=== PATIENT | female | born 1985 ===

== ENCOUNTER 2016-05-15 23:09 | Observation (INO) | payer MEDICAID ==
[2016-05-16] MEDS ORDERED: DiphenhydrAMINE 50 mg/ml Inj IV STA (00:53)
[2016-05-16] MEDS ORDERED: Sodium Chloride 0.9% 1,000 ML IV STA ×3 (00:53→09:23)
[2016-05-16] MEDS ORDERED: DiphenhydrAMINE 50 mg/ml Inj ONE (01:03)
--- NOTE | 2016-05-16 01:21 | CT ---
EXAM: CT Head Without Intravenous Contrast CLINICAL HISTORY: 30 years old, female; Pain; Headache TECHNIQUE: Axial computed tomography images of the head/brain without intravenous contrast. This CT exam was performed using one or more of the following dose reduction techniques: automated exposure control, adjustment of the mA and/or kV according to patient size, and/or use of iterative reconstruction technique. Coronal and sagittal reformatted images were created and reviewed. COMPARISON: No relevant prior studies available. FINDINGS: Brain: No intracranial hemorrhage. No mass. No definite edema. Ventricles: No hydrocephalus. Bones/joints: No acute fracture. Groundglass lesion within LEFT sphenoid bone, likely fibrous dysplasia. Soft tissues: Unremarkable. Sinuses: No acute sinusitis. Mastoid air cells: No mastoid effusion. Orbits: Unremarkable as visualized. IMPRESSION: 1.No acute intracranial abnormality. 2.Non-acute findings are described above.
--- NOTE | 2016-05-16 01:22 | ED PDOC ---
HPI: Headache Time Seen by Provider: 05/16/16 00:30 Chief Complaint (Nursing): Headache Chief Complaint (Provider): headache, left sided body aches History Per: Patient History/Exam Limitations: no limitations Onset/Duration Of Symptoms: Days Current Symptoms Are (Timing): Still Present Additional Complaint(s): 30yo female with no PMHx presents to the ED with c/o headache x 3 weeks with associate left sided body aches x 2 weeks. Patient reports intermittent left sided headache and left sided arm pain described as numbness and tingling that radiates to her left fingers with same sensation to left leg. Saw PCP who diagnosed with patient with a migraine headache and is taking a "small blue pill " with no relief. For the last 3 days notes severe nausea with PO intolerance including of medication. No fever, cough, SOB, chest pain, flu-like symptoms, diarrhea. Past Medical History Reviewed: Historical Data, Nursing Documentation, Vital Signs Vital Signs: Last Vital Signs Temp 98 F 05/15/16 23:25 Pulse 62 05/15/16 23:25 Resp 18 05/15/16 23:25 BP 160/87 H 05/15/16 23:25 Pulse Ox 100 05/15/16 23:25 - Medical History PMH: No Chronic Diseases - Surgical History Surgical History: Appendectomy, - Family History Family History: States: No Known Family Hx - Social History Current smoker - smoking cessation education provided: No Alcohol: None Drugs: Denies - Allergies Allergies/Adverse Reactions: Allergies Allergy/AdvReac Type Severity Reaction Status Date / Time No Known Allergies Allergy Verified 05/15/16 23:25 Review of Systems ROS Statement: Except As Marked, All Systems Reviewed And Found Negative Constitutional: Positive for: Other (body aches, PO intolerance, no flu-like symptoms ). Negative for: Fever Cardiovascular: Negative for: Chest Pain Respiratory: Negative for: Cough, Shortness of Breath Gastrointestinal: Positive for: Nausea. Negative for: Diarrhea Musculoskeletal: Positive for: Arm Pain (left ) Neurological: Positive for: Numbness, Headache, Other (tingling ) Physical Exam - Reviewed Nursing Documentation Reviewed: Yes Vital Signs Reviewed: Yes - Physical Exam Appears: Positive for: Well, No Acute Distress, Uncomfortable Head Exam: Positive for: ATRAUMATIC, NORMAL INSPECTION, NORMOCEPHALIC Skin: Positive for: Normal Color, Warm, Dry Eye Exam: Positive for: Normal appearance, EOMI, PERRL ENT: Positive for: Other (dry mucous membranes ). Negative for: Pharyngeal Erythema, Tonsillar Exudate, Tonsillar Swelling Neck: Positive for: Normal, Painless ROM, Supple Cardiovascular/Chest: Positive for: Regular Rate, Rhythm. Negative for: Murmur , Tachycardia Respiratory: Positive for: Normal Breath Sounds. Negative for: Wheezing, Respiratory Distress Gastrointestinal/Abdominal: Positive for: Normal Exam, Bowel Sounds, Soft. Negative for: Tenderness Back: Positive for: L CVA Tenderness. Negative for: R CVA Tenderness Extremity: Positive for: Normal ROM. Negative for: Deformity, Swelling Neurologic/Psych: Positive for: Alert, Oriented. Negative for: Motor/Sensory Deficits - Laboratory Results Result Diagrams: 05/16/16 01:06 05/16/16 01:06 - ECG O2 Sat by Pulse Oximetry: 100 Pulse Ox Interpretation: Normal (RA) Medical Decision Making Medical Decision Makin: Impression: 30yo female w/ headache and myalgias Plan: CT head Labs Benadryl 25mg IV, Phenergan 25mg IV, IVF reassess 0121: CT head impression: 1. No acute intracranial abnormality. 2. If symptoms persist, consider MRI for further evaluation. 0220: Labs reviewed, significant for elevated WBC count and urine indicative of UTI. On re-eval patient now states she has left flank pain and has left CVA tenderness. IV rocephin ordered. Patient will be admitted for further treatment. Dx: pyelonephritis fair Case discussed with Dr. Ahumada for medical service admission. Scribe Attestation: Documented by Paris Peoples acting as a scribe for Tyler Moser MD. Provider Scribe Attestation: All medical record entries made by the Scribe were at my direction and personally dictated by me. I have reviewed the chart and agree that the record accurately reflects my personal performance of the history, physical exam, medical decision making, and the department course for this patient. I have also personally directed, reviewed, and agree with the discharge instructions and disposition. Disposition - Clinical Impression Clinical Impression: Pyelonephritis - Patient ED Disposition Is Patient to be Admitted: Yes Discussed With Dr.: Colin Ahumada - Disposition Referrals: Mando Argueta MD [Primary Care Provider] - Disposition Time: 02:20 Condition: FAIR
[2016-05-16 01:52] LABS: BASO % 0.2 % (0.0-2.0); EOS # 0.1 K/uL (0.0-0.7); EOS % 0.4 % (0.0-4.0); HEMATOCRIT 35.5 % (34.0-47.0); LYMPH # 2.4 K/uL (1.0-4.3); LYMPH % 14.4 % (20.0-40.0); MEAN CELL VOLUME 79.6 fl (81.0-99.0); MEAN CORPUSCULAR HEMOGLOBIN 25.3 pg (27.0-31.0); MEAN CORPUSCULAR HGB CONC 31.7 g/dL (33.0-37.0); MEAN PLATELET VOLUME 8.4 fl (7.2-11.7); MONO # 0.8 K/uL (0.0-0.8); MONO % 4.7 % (0.0-10.0); NEUT # 13.5 K/uL (1.8-7.0); NEUT % 80.3 % (50.0-75.0); RED CELL DISTRIBUTION WIDTH 16.7 % (11.5-14.5); WHITE BLOOD COUNT 16.8 K/uL (4.8-10.8)
[2016-05-16 01:54] LABS: RBC URINE 4 /hpf (0-3); URINE BILIRUBIN NEGATIVE (NEGATIVE); URINE BLOOD MODERATE (NEGATIVE); URINE COLOR YELLOW (YELLOW); URINE GLUCOSE (UA) NEG (Normal); URINE KETONE TRACE mg/dL (NEGATIVE); URINE LEUKOCYTE ESTERASE NEG Leu/uL (Negative); URINE PROTEIN 30 mg/dL (NEGATIVE); URINE UROBILINOGEN 0.2-1.0 mg/dL (0.2-1.0); WBC URINE 27 /hpf (0-5)
[2016-05-16 01:56] LABS: CHLORIDE 104 mmol/L (98-107); POTASSIUM 3.8 MMOL/L (3.6-5.0); SODIUM 143 mmol/l (132-148)
[2016-05-16 01:58] LABS: AST/SGOT 25 U/L (14-36); BILIRUBIN,TOTAL 0.3 mg/dl (0.2-1.3); CARBON DIOXIDE 26 mmol/L (22-30); GFR AFRICAN-AMERICAN > 60
[2016-05-16 01:59] LABS: ALB/GLOB RATIO 1.2 (1.0-2.1); ALKALINE PHOSPHATASE 97 U/L (38-126); ALT/SGPT 25 U/L (9-52); BLOOD UREA NITROGEN 7 mg/dl (7-17); CALCIUM 9.4 mg/dL (8.4-10.2); GLUCOSE,RANDOM 97 mg/dL (65-105); TOTAL PROTEIN 7.9 G/DL (6.3-8.2)
[2016-05-16] MEDS ORDERED: cefTRIAXone (Rocephin) 1 gm Inj ONE (02:24)
[2016-05-16] MEDS ORDERED: Apap-Butalbital-Caffeine 325-50-40mg Tab PO PRN (09:25)
--- NOTE | 2016-05-16 10:08 | HP ---
SUBJECTIVE: The patient is a 30-year-old female admitted via the Emergency Room because of body ache s, headaches, numbness and tingling of left fingers for the past 2 weeks prior to presentation. She had seen her primary care doctor who gave her the blue pill that she had taken a few days but symptom s have persisted. She also has had pain in the left flank area for the past several days. FAMILY HISTORY: Unremarkable. SOCIAL HISTORY: She does not smoke or drink. REVIEW OF SYSTEMS: Essentially unremarkable. PHYSICAL EXAMINATION: GENERAL: The patient is alert, oriented, appears to be much more comfortable since admission, receiv ing tramadol. VITAL SIGNS: Blood pressure of 160/87, pulse of 62, respiratory rate 18. She is afebrile. O2 sat 1 00% on room air. SKIN: Shows fair turgor. HEENT: Pupils equal, react to light and accommodation. NECK: JVP flat. Mouth shows fair hygiene. LUNGS: Clear. HEART: Regular. BREASTS: Normal. ABDOMEN: Soft with mild left flank tenderness. EXTREMITIES: Shows no edema or cyanosis. CENTRAL NERVOUS SYSTEM: Grossly intact. LABORATORY DATA: Remarkable for CAT scan of the brain that is normal. WBC 16.8, hemoglobin 11.3, pl atelet count 314,000. Sodium 143, potassium 3.3, BUN 7, creatinine 0.6. Chest x-ray is pending. IMPRESSION: 1. Complex migraine headaches. 2. Acute pyelonephritis. PLAN: IV hydration, IV antibiotics. Ultrasound of abdomen to better evaluate kidneys. Analgesics f or pain. Further therapy will depend on findings. Colin Ahumada MD cc: 62 TT: 05/16/2016 10:07:40 jn
[2016-05-16] MEDS: Ciprofloxacin 400mg/200ml D5W 200 ML IVPB SCH ×2 (10:39→21:48)
--- NOTE | 2016-05-16 11:34 | US ---
HISTORY: abdominal pain/pyelonephritis COMPARISON: None. TECHNIQUE: Sonographic evaluation of the abdomen. FINDINGS: LIVER: Measures 16.5 cm. Patent portal vein. Portal venous flow: Hepatopetal. Unremarkeable echogenicity of the liver parenchyma. No mass. No intrahepatic bile duct dilatation. GALLBLADDER: Unremarkable. No gallstones. COMMON BILE DUCT: Measures 4.0 mm. No stones. No dilatation. PANCREAS: Unremarkable as visualized. No mass. No ductal dilatation. RIGHT KIDNEY: Measures 11.6 x 5.2cm. Normal echogenicity. No calculus, mass, or hydronephrosis. LEFT KIDNEY: Measures 1.6 x 5.0cm. Normal echogenicity. No calculus, mass, or hydronephrosis. SPLEEN: Normal in size and contour. No mass. AORTA: No aneurysmal dilatation. IVC: Unremarkable. OTHER FINDINGS: None. IMPRESSION: No significant or acute findings to account for/ related to the clinical presentation.
--- NOTE | 2016-05-16 13:16 | RAD ---
HISTORY: chest pain COMPARISON: No prior. TECHNIQUE: Chest PA and lateral FINDINGS: LUNGS: The lungs are well inflated and clear. PLEURA: No significant pleural effusion identified. No pneumothorax apparent. CARDIOVASCULAR: Normal. OSSEOUS STRUCTURES: No significant abnormalities. VISUALIZED UPPER ABDOMEN: Normal. OTHER FINDINGS: None. IMPRESSION: No active pulmonary disease.
[2016-05-17 07:40] LABS: BASO % 0.2 % (0.0-2.0); EOS # 0.1 K/uL (0.0-0.7); EOS % 0.7 % (0.0-4.0); HEMATOCRIT 32.9 % (34.0-47.0); LYMPH % 21.4 % (20.0-40.0); MEAN CELL VOLUME 79.3 fl (81.0-99.0); MEAN CORPUSCULAR HEMOGLOBIN 25.1 pg (27.0-31.0); MEAN CORPUSCULAR HGB CONC 31.7 g/dL (33.0-37.0); MEAN PLATELET VOLUME 8.7 fl (7.2-11.7); MONO # 0.9 K/uL (0.0-0.8); MONO % 6.4 % (0.0-10.0); NEUT # 9.8 K/uL (1.8-7.0); NEUT % 71.3 % (50.0-75.0); RED CELL DISTRIBUTION WIDTH 16.7 % (11.5-14.5); WHITE BLOOD COUNT 13.8 K/uL (4.8-10.8)
[2016-05-17 08:04] VITALS: BP 107/57; PULSE 75; RESP 20; TEMP 98.5; O2SAT 98
[2016-05-17] MEDS: Ciprofloxacin 400mg/200ml D5W 200 ML IVPB SCH (09:18)
--- NOTE | 2016-05-17 09:30 | CP.PCM.DIS ---
Provider - Provider Date of Admission: 05/16/16 02:14 Attending physician: Colin Ahumada MD Primary care physician: Mando Argueta MD Time Spent in preparation of Discharge (in minutes): 32 Diagnosis - Discharge Diagnosis (1) Pyelonephritis Status: Acute (2) Migraine Status: Acute Hospital Course - Lab Results Lab Results: Most Recent Lab Values WBC 13.8 K/uL (4.8-10.8) H 05/17/16 05:50 RBC 4.15 Mil/uL (3.80-5.20) 05/17/16 05:50 Hgb 10.4 g/dL (12.0-16.0) L 05/17/16 05:50 Hct 32.9 % (34.0-47.0) L 05/17/16 05:50 MCV 79.3 fl (81.0-99.0) L 05/17/16 05:50 MCH 25.1 pg (27.0-31.0) L 05/17/16 05:50 MCHC 31.7 g/dL (33.0-37.0) L 05/17/16 05:50 RDW 16.7 % (11.5-14.5) H 05/17/16 05:50 Plt Count 265 K/uL (130-400) 05/17/16 05:50 MPV 8.7 fl (7.2-11.7) 05/17/16 05:50 Neut % (Auto) 71.3 % (50.0-75.0) 05/17/16 05:50 Lymph % (Auto) 21.4 % (20.0-40.0) 05/17/16 05:50 [place] % (Auto) 6.4 % (0.0-10.0) 05/17/16 05:50 Eos % (Auto) 0.7 % (0.0-4.0) 05/17/16 05:50 Baso % (Auto) 0.2 % (0.0-2.0) 05/17/16 05:50 Neut # 9.8 K/uL (1.8-7.0) H 05/17/16 05:50 Lymph # 3.0 K/uL (1.0-4.3) 05/17/16 05:50 [place] # 0.9 K/uL (0.0-0.8) H 05/17/16 05:50 Eos # 0.1 K/uL (0.0-0.7) 05/17/16 05:50 Baso # 0.0 K/uL (0.0-0.2) 05/17/16 05:50 ESR 53 mm/hr (0-20) H 05/16/16 01:06 Sodium 143 mmol/l (132-148) 05/16/16 01:06 Potassium 3.8 MMOL/L (3.6-5.0) 05/16/16 01:06 Chloride 104 mmol/L (98-107) 05/16/16 01:06 Carbon Dioxide 26 mmol/L (22-30) 05/16/16 01:06 Anion Gap 18 (10-20) 05/16/16 01:06 BUN 7 mg/dl (7-17) 05/16/16 01:06 Creatinine 0.6 mg/dL (0.7-1.2) L 05/16/16 01:06 Est GFR ( Amer) > 60 05/16/16 01:06 Est GFR (Non-Af Amer) > 60 05/16/16 01:06 Random Glucose 97 mg/dL (65-105) 05/16/16 01:06 Calcium 9.4 mg/dL (8.4-10.2) 05/16/16 01:06 Total Bilirubin 0.3 mg/dl (0.2-1.3) 05/16/16 01:06 AST 25 U/L (14-36) 05/16/16 01:06 ALT 25 U/L (9-52) 05/16/16 01:06 Alkaline Phosphatase 97 U/L (38-126) 05/16/16 01:06 Total Creatine Kinase 56 U/L (30-135) 05/16/16 01:06 Total Protein 7.9 G/DL (6.3-8.2) 05/16/16 01:06 Albumin 4.3 g/dL (3.5-5.0) 05/16/16 01:06 Globulin 3.7 gm/dL (2.2-3.9) 05/16/16 01:06 Albumin/Globulin Ratio 1.2 (1.0-2.1) 05/16/16 01:06 Urine Color Yellow (YELLOW) 05/16/16 01:06 Urine Clarity Slighty-cloudy (Clear) 05/16/16 01:06 Urine pH 6.0 (5.0-8.0) 05/16/16 01:06 Ur Specific [place] 1.012 (1.003-1.030) 05/16/16 01:06 Urine Protein 30 mg/dL (NEGATIVE) 05/16/16 01:06 Urine Glucose (UA) Neg mg/dL (Normal) 05/16/16 01:06 Urine Ketones Trace mg/dL (NEGATIVE) 05/16/16 01:06 Urine Blood Moderate (NEGATIVE) 05/16/16 01:06 Urine Nitrate Negative (NEGATIVE) 05/16/16 01:06 Urine Bilirubin Negative (NEGATIVE) 05/16/16 01:06 Urine Urobilinogen 0.2-1.0 mg/dL (0.2-1.0) 05/16/16 01:06 Ur Leukocyte Esterase Neg [place]/uL (Negative) 05/16/16 01:06 Urine RBC (Auto) 4 /hpf (0-3) H 05/16/16 01:06 Urine Microscopic WBC 27 /hpf (0-5) H 05/16/16 01:06 Ur Squamous Epith Cells 3 /hpf (0-5) 05/16/16 01:06 Infectious [place] Assay Negative (NEGATIVE) 05/16/16 01:06 Influenza Typ A,B (EIA) Negative for flu a/b (NEGATIVE) 05/16/16 01:00 - Hospital Course Hospital Course: clinically improved Discharge Exam - Head Exam Head Exam: ATRAUMATIC, NORMAL INSPECTION, NORMOCEPHALIC - Eye Exam Eye Exam: EOMI, Normal appearance, PERRL Pupil Exam: NORMAL ACCOMODATION, PERRL - GI/Abdominal Exam GI & Abdominal Exam: Normal Bowel Sounds - Rectal Exam Rectal Exam: NORMAL INSPECTION - Neurological Exam Neurological exam: Alert, CN II-XII Intact, Normal Gait, Oriented x3, Reflexes Normal - Psychiatric Exam Psychiatric exam: Normal Affect, Normal Mood - Skin Skin Exam: Dry, Intact, Normal Color, Warm Discharge Plan - Follow Up Plan Condition: FAIR Disposition: HOME/ ROUTINE Patient education suggested?: Yes Additional Instructions: discharge today on cipro and fioricet follow up with pmd Referrals: Mando Argueta MD [Primary Care Provider] -
== END 2016-05-17 10:30 | disposition home or self-care (01) ==
LOC: H.ER 23:09 → H.ERHOLD 05-16 02:14 → INTOOBSV 05-16 02:14 → H.MEDSURG1 05-16 04:06
PROVIDERS: ADMIT Internal Medicine Pulmonary Disease; ATTEND Internal Medicine Pulmonary Disease
DX: N10 Acute pyelonephritis (principal); G43.909 Migraine, unspecified, not intractable, without status migrainosus